=== PATIENT | female | born 1975 | race Caucasian/White ===

== ENCOUNTER 2016-08-17 06:11 | Emergency (ER) | payer MEDICAID ==
[~2016-08-17] VITALS: Ht 160 cm; Wt 76.0 kg
[2016-08-17] MEDS ORDERED: KETOROLAC 30MG/ML VIAL IV STA (10:31)
[2016-08-17] MEDS ORDERED: SODIUM CHLORIDE 0.9% 1,000 ML IV ONE (10:31)
[2016-08-17] MEDS ORDERED: METOCLOPRAMIDE HCL 10MG/2ML VIAL IV ONE (10:45)
[2016-08-17 12:45] VITALS: BP 111/66
== END 2016-08-17 13:36 | disposition home or self-care (01) ==
LOC: ER 09:15
DX: R51 Headache (principal); R11.2 Nausea with vomiting, unspecified; K21.9 Gastro-esophageal reflux disease without esophagitis
CPT/HCPCS: 96374; 96375; 99284; J1885; J2765; J7030; Z7610